=== PATIENT | male | born 1935 | race Caucasian/White ===

== ENCOUNTER 2019-06-10 08:58 | Emergency (ER) | payer MEDICARE, OTHER ==
[2019-06-10] MEDS ORDERED: Sodium Chloride 0.9% 10 ML Syringe FLUSH PRN (09:02)
--- NOTE | 2019-06-10 09:23 | EDM.PDOC ---
ED HPI GENERAL MEDICAL PROBLEM - General Stated Complaint: STROKE CODE Time Seen by Provider: 06/10/19 09:00 Source of Information: Reports: Patient, Family History Limitations: Reports: No Limitations - History of Present Illness INITIAL COMMENTS - FREE TEXT/NARRATIVE: Pt. presents to ER with complaints of headache and expressive aphasia. According to pt. daughter, the symptoms started yesterday at around 4 PM. At that time, the headache was more severe, and the expressive aphasia is more pronounced. On arrival today, pt. reports that his headache is only a 1-2. He has a history of migraine headache in the past and he feels as though this could be a migraine. He states that he has never had issues with expressive aphasia or dysarthria or other neuro symptoms in the past with migraines. Pt. denies any nausea or vomiting. He states that he did have some visual flashing type aura yesterday at the onset of the symptoms but he states that this resolved in 10-15 min. Onset Date: 06/09/19 Onset Time: 16:00 Associated Symptoms: Reports: Headaches, Other (see HPI). Denies: Confusion, Chest Pain, Cough, Fever/Chills, Loss of Appetite, Malaise, Nausea/Vomiting, Rash, Seizure, Shortness of Breath, Weakness - Related Data Allergies Allergy/AdvReac Type Severity Reaction Status Date / Time adhesive Allergy Redness Verified 12/20/17 07:27 cephalexin [From Keflex] Allergy Rash Verified 12/20/17 07:27 Penicillins Allergy Rash Verified 12/20/17 07:27 Home Meds: Home Meds Aspirin 81 mg PO DAILY 12/11/17 [History] Cyanocobalamin (Vitamin B-12) [B-12] 1,000 mcg PO DAILY 12/11/17 [History] Desoximetasone [Desoximetasone 0.25%] 1 applic TOP BID 12/11/17 [History] Doxazosin [Doxazosin Mesylate] 4 mg PO DAILY 12/11/17 [History] Metoprolol Succinate [Toprol XL] 25 mg PO DAILY 12/11/17 [History] Omeprazole Magnesium [Prilosec Otc] 20 mg PO DAILY 12/11/17 [History] Pravastatin Sodium [Pravachol] 20 mg PO DAILY 12/11/17 [History] Pregabalin [Lyrica] 50 mg PO DAILY 12/11/17 [History] Past Medical History HEENT History: Reports: Cataract Cardiovascular History: Reports: High Cholesterol, Hypertension Other Cardiovascular History: orthostatic hypotension Respiratory History: Reports: None Other Respiratory History: SURGERY FOR RADIACAL PROSTECTOMY Gastrointestinal History: Reports: GERD Genitourinary History: Reports: None Musculoskeletal History: Reports: Arthritis Neurological History: Reports: None Other Neuro History: neuropathy. Anosmia Endocrine/Metabolic History: Reports: Obesity/BMI 30+ Hematologic History: Reports: None Immunologic History: Reports: None Oncologic (Cancer) History: Reports: Prostate Dermatologic History: Reports: None - Past Surgical History HEENT Surgical History: Reports: Cataract Surgery Cardiovascular Surgical History: Reports: None GI Surgical History: Reports: Hernia, Inguinal, Hernia Repair/Other Male Surgical History: Reports: Prostatectomy Endocrine Surgical History: Reports: None Neurological Surgical History: Reports: None Musculoskeletal Surgical History: Reports: None ED ROS GENERAL - Review of Systems Review Of Systems: See Below Constitutional: Reports: No Symptoms HEENT: Reports: No Symptoms Respiratory: Reports: No Symptoms Cardiovascular: Reports: No Symptoms Endocrine: Reports: No Symptoms GI/Abdominal: Reports: No Symptoms : Reports: No Symptoms Musculoskeletal: Reports: No Symptoms Skin: Reports: No Symptoms Neurological: Reports: Other (See HPI) Psychiatric: Reports: No Symptoms Hematologic/Lymphatic: Reports: No Symptoms Immunologic: Reports: No Symptoms ED EXAM, GENERAL - Physical Exam Exam: See Below Exam Limited By: No Limitations General Appearance: Alert, WD/WN, No Apparent Distress Eye Exam: Bilateral Eye: EOMI, Normal Fundi, Normal Inspection, PERRL Head: Atraumatic, Normocephalic Neck: Normal Inspection, Supple, Non-Tender, Full Range of Motion Respiratory/Chest: No Respiratory Distress, Lungs Clear, Normal Breath Sounds, No Accessory Muscle Use, Chest Non-Tender Cardiovascular: Normal Peripheral Pulses, Regular Rate, Rhythm, No Edema, No Gallop, No JVD, No Murmur, No Rub GI/Abdominal: Normal Bowel Sounds, Soft, Non-Tender, No Organomegaly, No Distention, No Abnormal Bruit, No Mass, Pelvis Stable (Male) Exam: Deferred Rectal (Males) Exam: Deferred Back Exam: Normal Inspection, Full Range of Motion Extremities: Normal Inspection, Normal Range of Motion, Non-Tender, No Pedal Edema, Normal Capillary Refill Neurological: Alert, Oriented, CN II-XII Intact, Normal Cognition, Normal Gait, Normal Reflexes, No Motor/Sensory Deficits, Other (mild expressive aphasia, had trouble identifying several pictures on the [employer] identification form. Reading and speech are slower than normal, according to daughter.) Psychiatric: Normal Affect, Normal Mood Skin Exam: Warm, Dry, Intact, Normal Color, No Rash Lymphatic: No Adenopathy EKG INTERPRETATION Rhythm: NSR Gaffney: Normal P-Wave: Present QRS: Normal ST-T: Normal QT: Normal Course - Orders/Labs/Meds Orders: Active Orders 24 hr Category Date Time Status Blood Glucose Check, Bedside [RC] ONETIME Care 06/10/19 09:04 Active EKG Documentation Completion [RC] STAT Care 06/10/19 09:02 Active Head wo Cont [CT] Stat Exams 06/10/19 09:01 Taken CBC WITH AUTO DIFF [HEME] Stat Lab 06/10/19 09:02 Ordered COMPREHENSIVE METABOLIC PN,CMP [CHEM] Stat Lab 06/10/19 09:02 Ordered CRP [C-REACTIVE PROTEIN] [CHEM] Stat Lab 06/10/19 09:02 Ordered GLUCOSE,POC [POC] Routine Lab 06/10/19 09:13 Received INR,PT,PROTHROMBIN TIME [COAG] Stat Lab 06/10/19 09:02 Ordered MAGNESIUM [CHEM] Stat Lab 06/10/19 09:02 Ordered TROPONIN I [CHEM] Stat Lab 06/10/19 09:02 Ordered TSH ULTRASENSITIVE [CHEM] Stat Lab 06/10/19 09:02 Ordered Sodium Chloride 0.9% [Saline Flush] Med 06/10/19 09:02 Active 10 ml FLUSH ASDIRECTED PRN Peripheral IV Insertion Adult [OM.PC] Routine Oth 06/10/19 09:03 Ordered Medication Orders Sodium Chloride (Saline Flush) 10 ml FLUSH ASDIRECTED PRN PRN Reason: Keep Vein Open Meds: Medications Generic Name Dose Route Start Last Admin Trade Name Freq PRN Reason Stop Dose Admin Sodium Chloride 10 ml 06/10/19 09:02 Saline Flush FLUSH ASDIRECTED PRN Keep Vein Open - Radiology Interpretation Free Text/Narrative:: CT brain negative for acute pathology. Departure - Departure Time of Disposition: 09:47 Disposition: DC/Tfer to Acute Hospital 02 Clinical Impression: Expressive aphasia - Discharge Information - My Orders Last 24 Hours: My Active Orders 06/10/19 09:01 Head wo Cont [CT] Stat 06/10/19 09:02 EKG Documentation Completion [RC] STAT CBC WITH AUTO DIFF [HEME] Stat COMPREHENSIVE METABOLIC PN,CMP [CHEM] Stat CRP [C-REACTIVE PROTEIN] [CHEM] Stat INR,PT,PROTHROMBIN TIME [COAG] Stat MAGNESIUM [CHEM] Stat TROPONIN I [CHEM] Stat TSH ULTRASENSITIVE [CHEM] Stat Sodium Chloride 0.9% [Saline Flush] 10 ml FLUSH ASDIRECTED PRN 06/10/19 09:03 Peripheral IV Insertion Adult [OM.PC] Routine 06/10/19 09:04 Blood Glucose Check, Bedside [RC] ONETIME 06/10/19 09:13 GLUCOSE,POC [POC] Routine - Assessment/Plan Last 24 Hours: My Active Orders 06/10/19 09:01 Head wo Cont [CT] Stat 06/10/19 09:02 EKG Documentation Completion [RC] STAT CBC WITH AUTO DIFF [HEME] Stat COMPREHENSIVE METABOLIC PN,CMP [CHEM] Stat CRP [C-REACTIVE PROTEIN] [CHEM] Stat INR,PT,PROTHROMBIN TIME [COAG] Stat MAGNESIUM [CHEM] Stat TROPONIN I [CHEM] Stat TSH ULTRASENSITIVE [CHEM] Stat Sodium Chloride 0.9% [Saline Flush] 10 ml FLUSH ASDIRECTED PRN 06/10/19 09:03 Peripheral IV Insertion Adult [OM.PC] Routine 06/10/19 09:04 Blood Glucose Check, Bedside [RC] ONETIME 06/10/19 09:13 GLUCOSE,POC [POC] Routine Plan: Spoke with Dr. Ferrer, neurologist at [facility]. He advised transfer to their stroke center for CTA, MRA, echo, and other workup as needed. He will be seen in ER. He will be transferred via [facility] ground ambulance. CT brain negative for acute pathology. He was given aspirin 324mg PO. All questions were answered.
--- NOTE | 2019-06-10 09:28 | CT ---
[id number] CT/CT Head Stroke Protocol Exam: CT Head Stroke Protocol Clinical Data: EXPRESSIVE APHASIA COMPARISON: NO PREVIOUS SIMILAR EXAM IS AVAILABLE FINDINGS: There is no mass or mass effect There is no hemorrhage or hydrocephalus There are no extra-axial fluid collections There is no hyperdense middle cerebral artery sign There are no sites of abnormal attenuation The aspect score is 10 Report was called at time of the dictation IMPRESSION: NEGATIVE PLAIN CT BRAIN Zeyad Conti MD 06/10/19 0925 Thank you for allowing us to participate in the care of your patient.
[2019-06-10] MEDS ORDERED: Aspirin 81 MG Tab.Chew PO ONE (09:33)
[2019-06-10 09:58] LABS: CHLORIDE,CL 105 mmol/L (98-107); SODIUM,NA 142 mmol/L (136-145)
== END 2019-06-10 10:05 | disposition short-term general hospital (02) ==
LOC: VM.ED 08:58
DX: R47.01 Aphasia (principal); I10 Essential (primary) hypertension; Z91.048 Other nonmedicinal substance allergy status; Z88.1 Allergy status to other antibiotic agents; Z88.0 Allergy status to penicillin; Z79.82 Long term (current) use of aspirin; Z79.899 Other long term (current) drug therapy
CPT/HCPCS: 70450; 80053; 82962; 83735; 84443; 84484; 85025; 85610; 86140; 93005; 93010; 99284; 99285; A9270

== ENCOUNTER 2021-10-05 09:15 | Inpatient (IN) | payer MEDICARE ==
[2021-10-05] MEDS ORDERED: Sodium Chloride 0.9% 1,000 ML IV ONE (09:30)
[2021-10-05] MEDS ORDERED: Acetaminophen 325 MG Tab PO ONE (09:31)
[2021-10-05 10:08] LABS: CHLORIDE,CL 103 mmol/L (98-107); SODIUM,NA 139 mmol/L (136-145)
[2021-10-05 10:10] LABS: ANION GAP 15.4 mmol/L (5-15); ESTIMATED GFR 60 mL/min (>=60)
[2021-10-05] MEDS ORDERED: Aspirin 81 MG Tab.Chew PO ONE (10:15)
[2021-10-05] MEDS ORDERED: Metoprolol Succinate 25 MG Tab.ER PO SCH (12:30)
[2021-10-05] MEDS ORDERED: Ondansetron 4 MG Tab.DIS PO PRN (13:05)
[2021-10-05] MEDS ORDERED: Acetaminophen 325 MG Tab PO PRN (13:10)
[2021-10-05] MEDS: Aspirin 81 MG Tab.Chew PO SCH (13:16)
[2021-10-05] MEDS: Cyanocobalamin (Vitamin B12) 1,000 MCG Tab PO SCH (13:20)
[2021-10-05] MEDS: Pregabalin 50 MG Cap PO SCH (13:20)
[2021-10-05] MEDS: Pravastatin 20 MG Tab PO SCH (13:20)
[2021-10-05] MEDS: Carbidopa/Levodopa 25-100 MG Tab PO SCH ×2 (13:24→21:13)
[2021-10-05] MEDS ORDERED: Metoprolol Succinate 25 MG Tab.ER PO ONE (15:00)
[2021-10-05] MEDS: Carbidopa/Levodopa 50-200 MG Tab.ER PO SCH (21:15)
[2021-10-05] MEDS: Enoxaparin 30 MG/0.3 ML Syringe SUBCUT SCH (21:15)
[2021-10-06] MEDS: Pantoprazole 20 MG Tab, Delayed Release PO SCH (06:09)
[2021-10-06 08:41] LABS: ANION GAP 15.6 mmol/L (5-15)
[2021-10-06] MEDS: Pravastatin 20 MG Tab PO SCH (09:32)
[2021-10-06] MEDS: Doxazosin 4 MG Tab PO SCH (09:41)
[2021-10-06] MEDS: Metoprolol Succinate 50 MG Tab.ER PO SCH (09:42)
[2021-10-06] MEDS: Carbidopa/Levodopa 25-100 MG Tab PO SCH ×3 (09:43→20:19)
[2021-10-06] MEDS: Aspirin 81 MG Tab.Chew PO SCH (09:44)
[2021-10-06] MEDS: Pregabalin 50 MG Cap PO SCH (09:44)
[2021-10-06] MEDS: Cyanocobalamin (Vitamin B12) 1,000 MCG Tab PO SCH (09:44)
[2021-10-06] MEDS: Enoxaparin 30 MG/0.3 ML Syringe SUBCUT SCH (20:19)
[2021-10-06] MEDS: Carbidopa/Levodopa 50-200 MG Tab.ER PO SCH (20:19)
[2021-10-07] MEDS: Pantoprazole 20 MG Tab, Delayed Release PO SCH (06:08)
[2021-10-07 07:21] LABS: ANION GAP 12.7 mmol/L (5-15)
[2021-10-07] MEDS: Doxazosin 4 MG Tab PO SCH (08:33)
[2021-10-07] MEDS: Cyanocobalamin (Vitamin B12) 1,000 MCG Tab PO SCH (08:33)
[2021-10-07] MEDS: Pregabalin 50 MG Cap PO SCH (08:33)
[2021-10-07] MEDS: Aspirin 81 MG Tab.Chew PO SCH (08:33)
[2021-10-07] MEDS: Carbidopa/Levodopa 25-100 MG Tab PO SCH ×3 (08:34→20:21)
[2021-10-07] MEDS: Metoprolol Succinate 50 MG Tab.ER PO SCH (08:34)
[2021-10-07] MEDS ORDERED: Benzonatate 100 MG Cap PO PRN (11:08)
[2021-10-07] MEDS: Enoxaparin 40 MG/0.4 ML Syringe SUBCUT SCH (20:21)
[2021-10-07] MEDS: Carbidopa/Levodopa 50-200 MG Tab.ER PO SCH (20:22)
[2021-10-08] MEDS: Pantoprazole 20 MG Tab, Delayed Release PO SCH (07:32)
[2021-10-08 08:27] LABS: ANION GAP 12.7 mmol/L (5-15)
[2021-10-08] MEDS: Metoprolol Succinate 50 MG Tab.ER PO SCH (08:52)
[2021-10-08] MEDS: Doxazosin 4 MG Tab PO SCH (08:52)
[2021-10-08] MEDS: Aspirin 81 MG Tab.Chew PO SCH (08:52)
[2021-10-08] MEDS: Cyanocobalamin (Vitamin B12) 1,000 MCG Tab PO SCH (08:52)
[2021-10-08] MEDS: Carbidopa/Levodopa 25-100 MG Tab PO SCH ×3 (08:52→21:12)
[2021-10-08] MEDS: Pregabalin 50 MG Cap PO SCH (08:53)
[2021-10-08] MEDS: Carbidopa/Levodopa 50-200 MG Tab.ER PO SCH (21:13)
[2021-10-08] MEDS: Enoxaparin 40 MG/0.4 ML Syringe SUBCUT SCH (21:14)
[2021-10-09] MEDS: Carbidopa/Levodopa 25-100 MG Tab PO SCH ×2 (07:00→13:38)
[2021-10-09] MEDS: Pantoprazole 20 MG Tab, Delayed Release PO SCH (07:05)
[2021-10-09] MEDS: Aspirin 81 MG Tab.Chew PO SCH (08:40)
[2021-10-09] MEDS: Pregabalin 50 MG Cap PO SCH (08:40)
[2021-10-09] MEDS: Doxazosin 4 MG Tab PO SCH (08:40)
[2021-10-09] MEDS: Metoprolol Succinate 50 MG Tab.ER PO SCH (08:41)
[2021-10-09] MEDS: Cyanocobalamin (Vitamin B12) 1,000 MCG Tab PO SCH (08:41)
[2021-10-09] MEDS ORDERED: Ascorbic Acid 500 MG Tab PO SCH (09:00)
[2021-10-09] MEDS ORDERED: Cholecalciferol (Vitamin D3) 25 MCG Tab PO SCH (09:00)
[2021-10-09] MEDS ORDERED: Zinc Sulfate 220 MG Cap PO SCH (09:00)
[2021-10-09] MEDS ORDERED: Cholecalciferol (Vitamin D3) 10 MCG Tab PO SCH (09:00)
== END 2021-10-09 14:14 | disposition home health service (06) | DRG 177 ==
LOC: VM.ED 09:15 → VM.MS 11:12 → UNDODISIN 10-09 14:14
PROVIDERS: ADMIT Nurse Practitioner Family; ATTEND Nurse Practitioner Family
PROC: 8E0ZXY6 Isolation (ICD-10-PCS; principal; 2021-10-05)
DX: U07.1 COVID-19 (principal); R53.1 Weakness; R50.9 Fever, unspecified; R77.8 Other specified abnormalities of plasma proteins; Z28.311 Partially vaccinated for COVID-19; I21.4 Non-ST elevation (NSTEMI) myocardial infarction; M62.82 Rhabdomyolysis; E44.1 Mild protein-calorie malnutrition; I10 Essential (primary) hypertension; Z85.46 Personal history of malignant neoplasm of prostate; E78.5 Hyperlipidemia, unspecified; G20 Parkinson's disease; K21.9 Gastro-esophageal reflux disease without esophagitis; F41.9 Anxiety disorder, unspecified; G62.9 Polyneuropathy, unspecified; E78.00 Pure hypercholesterolemia, unspecified; R73.01 Impaired fasting glucose; M19.90 Unspecified osteoarthritis, unspecified site; Z66 Do not resuscitate; Z88.0 Allergy status to penicillin; Z79.82 Long term (current) use of aspirin; Z79.899 Other long term (current) drug therapy; Z88.1 Allergy status to other antibiotic agents; Z88.8 Allergy status to other drugs, medicaments and biological substances; Z68.33 Body mass index [BMI] 33.0-33.9, adult
CPT/HCPCS: 36415; 71045; 80053; 81001; 82550; 83605; 83735; 83880; 84484; 85025; 85027; 96360; 97110-GP; 97116-GP; 97163-GP; 99284; 99285-25; A9270-GY; J1650; J7030; U0002

== ENCOUNTER 2023-05-10 09:06 | Inpatient (IN) | payer MEDICARE ==
[2023-05-10] MEDS ORDERED: Furosemide 40 MG/4 ML VIAL IV ONE (09:10)
[2023-05-10 09:22] LABS: BASOPHILS PERCENT AUTO 0.2 % (0.2-1.2); EOSINOPHILS PERCENT AUTO 0.2 % (0.0-4.0); HEMATOCRIT 38.8 % (40.0-52.0); HEMOGLOBIN 13.1 g/dL (14.0-18.0); IMMATURE GRAN ABSOLUTE AUTO 0.01 x10^3/uL (0.00-0.07); LYMPHOCYTES ABSOLUTE AUTO 0.3 x10^3/uL (1.0-4.8); LYMPHOCYTES PERCENT AUTO 3.5 % (25.0-50.0); MEAN CORPUSCULAR HEMOGLOBIN 29.6 pg (26.0-32.0); MEAN CORPUSCULAR HGB CONC 33.8 g/dL (32.0-36.0); MEAN CORPUSCULAR VOLUME 87.8 fL (78.0-93.0); MONOCYTES ABSOLUTE AUTO 0.7 x10^3/uL (0.0-0.8); MONOCYTES PERCENT AUTO 8.8 % (2.0-11.0); NEUTROPHILS ABSOLUTE AUTO 7.3 x10^3/uL (1.8-7.7); NEUTROPHILS PERCENT AUTO 87.2 % (50.0-80.0); RED BLOOD CELL COUNT 4.42 x10^6/uL (4.5-6.0); WHITE BLOOD CELL COUNT,WBC 8.3 x10^3/uL (4.0-10.0)
[2023-05-10 09:43] LABS: PLATELET COUNT,PLT 140 x10^3/uL (130-400)
[2023-05-10 09:48] LABS: A/G RATIO 1.23; ALBUMIN 3.7 g/dL (3.4-5.0); ALKALINE PHOSPHATASE 83 U/L (46-116); ASPARTATE AMNIOTRANSFERASE,AST 31 U/L (15-37); BILIRUBIN TOTAL 1.9 mg/dL (0.2-1.0); BLOOD UREA NITROGEN,BUN 17 mg/dL (7-18); CALCIUM 9.6 mg/dL (8.5-10.1); CARBON DIOXIDE,CO2 28 mmol/L (21-32); CHLORIDE,CL 103 mmol/L (98-107); CREATININE 1.2 mg/dL (0.70-1.30); GLUCOSE RANDOM 108 mg/dL (70-99); POTASSIUM,K 3.7 mmol/L (3.5-5.1); PROTEIN TOTAL,TP 6.7 g/dL (6.4-8.2); SODIUM,NA 140 mmol/L (136-145)
[2023-05-10 09:51] LABS: ANION GAP 12.7 mmol/L (5-15); ESTIMATED GFR 59 mL/min (>=60)
[2023-05-10 10:16] LABS: ALANINE AMINOTRANSFERASE,ALT 28 U/L (16-63)
[2023-05-10 10:34] LABS: C-REACTIVE PROTEIN 1.75 mg/dL (<=0.50)
[2023-05-10 11:13] LABS: CORONAVIRUS COVID-19 NAA NEGATIVE (NEGATIVE)
[2023-05-10 11:14] LABS: INFLUENZA A NAA NEGATIVE (NEGATIVE); INFLUENZA B NAA NEGATIVE (NEGATIVE)
[2023-05-10] MEDS ORDERED: Carbidopa/Levodopa 50-200 MG Tab.ER PO PRN (11:42)
[2023-05-10] MEDS ORDERED: Sodium Chloride 0.9% 1,000 ML IV SCH (11:45)
[2023-05-10 12:21] LABS: APPEARANCE,URINE TURBID (CLEAR); BILIRUBIN,URINE NEGATIVE (NEGATIVE); GLUCOSE,URINE NEGATIVE (NEGATIVE); KETONES,URINE NEGATIVE (NEGATIVE); LEUKOCYTE ESTERASE,URINE TRACE (NEGATIVE); NITRITE,URINE NEGATIVE (NEGATIVE); OCCULT BLOOD,URINE LARGE (NEGATIVE); PROTEIN,URINE NEGATIVE (NEGATIVE); UROBILINOGEN,URINE 0.2 EU/dL (0.2)
[2023-05-10 12:22] LABS: COLOR,URINE RED (YELLOW)
[2023-05-10 12:27] LABS: BACTERIA,URINE OCCASIONAL /HPF (NOT SEEN); MUCUS,URINE OCCASIONAL /LPF (NOT SEEN); RBC,URINE >100 /HPF (NOT SEEN); SQUAMOUS EPITHELIAL CELLS,UR NOT SEEN /HPF (NOT SEEN)
[2023-05-10] MEDS ORDERED: Bisacodyl 10 MG Supp RECTAL PRN (12:34)
[2023-05-10] MEDS: Cyanocobalamin (Vitamin B12) 1,000 MCG Tab PO SCH (12:52)
[2023-05-10] MEDS: Docusate Sodium 100 MG Cap PO SCH (12:52)
[2023-05-10] MEDS: Cholecalciferol (Vitamin D3) 25 MCG Tab PO SCH (12:53)
[2023-05-10] MEDS: Pantoprazole 40 MG Tab.CR PO SCH (12:53)
[2023-05-10] MEDS: FLUoxetine 10 MG Cap PO SCH (12:53)
[2023-05-10] MEDS: Carbidopa/Levodopa 25-100 MG Tab PO SCH ×2 (12:53→15:50)
[2023-05-10] MEDS: Aspirin 81 MG Tab.Chew PO SCH (12:54)
[2023-05-10] MEDS: Metoprolol Succinate 50 MG Tab.ER PO SCH (12:58)
[2023-05-10] MEDS: Lisinopril 5 MG Tab PO SCH (15:47)
[2023-05-10] MEDS: Enoxaparin 40 MG/0.4 ML Syringe SUBCUT SCH (20:06)
[2023-05-10] MEDS: Carbidopa/Levodopa 50-200 MG Tab.ER PO SCH (20:06)
[2023-05-10] MEDS: Donepezil 10 MG Tab PO SCH (20:07)
[2023-05-10] MEDS: Baclofen 10 MG Tab PO SCH (20:07)
[2023-05-11] MEDS: Carbidopa/Levodopa 25-100 MG Tab PO SCH ×3 (05:18→15:49)
[2023-05-11 07:01] LABS: BASOPHILS PERCENT AUTO 0.2 % (0.2-1.2); EOSINOPHILS ABSOLUTE AUTO 0.1 x10^3/uL (0.0-0.5); EOSINOPHILS PERCENT AUTO 2.1 % (0.0-4.0); HEMATOCRIT 37.5 % (40.0-52.0); HEMOGLOBIN 12.5 g/dL (14.0-18.0); IMMATURE GRAN ABSOLUTE AUTO 0.01 x10^3/uL (0.00-0.07); LYMPHOCYTES ABSOLUTE AUTO 0.3 x10^3/uL (1.0-4.8); LYMPHOCYTES PERCENT AUTO 5.6 % (25.0-50.0); MEAN CORPUSCULAR HEMOGLOBIN 29.5 pg (26.0-32.0); MEAN CORPUSCULAR HGB CONC 33.3 g/dL (32.0-36.0); MEAN CORPUSCULAR VOLUME 88.4 fL (78.0-93.0); MONOCYTES ABSOLUTE AUTO 0.6 x10^3/uL (0.0-0.8); MONOCYTES PERCENT AUTO 10.9 % (2.0-11.0); NEUTROPHILS ABSOLUTE AUTO 4.7 x10^3/uL (1.8-7.7); RED BLOOD CELL COUNT 4.24 x10^6/uL (4.5-6.0); WHITE BLOOD CELL COUNT,WBC 5.9 x10^3/uL (4.0-10.0)
[2023-05-11 07:20] LABS: PLATELET COUNT,PLT 118 x10^3/uL (130-400)
[2023-05-11 07:32] LABS: A/G RATIO 1.1; ALBUMIN 3.2 g/dL (3.4-5.0); BILIRUBIN TOTAL 1.3 mg/dL (0.2-1.0); CALCIUM 9.3 mg/dL (8.5-10.1); EST CRCL DRUG DOSING (CG) 53.03 mL/min; POTASSIUM,K 3.2 mmol/L (3.5-5.1); PROTEIN TOTAL,TP 6.1 g/dL (6.4-8.2)
[2023-05-11 07:34] LABS: ANION GAP 12.2 mmol/L (5-15)
[2023-05-11] MEDS: Aspirin 81 MG Tab.Chew PO SCH (08:44)
[2023-05-11] MEDS: Lisinopril 5 MG Tab PO SCH (08:45)
[2023-05-11] MEDS: Cholecalciferol (Vitamin D3) 25 MCG Tab PO SCH (08:45)
[2023-05-11] MEDS: Docusate Sodium 100 MG Cap PO SCH (08:45)
[2023-05-11] MEDS: Metoprolol Succinate 50 MG Tab.ER PO SCH (08:45)
[2023-05-11] MEDS: Cyanocobalamin (Vitamin B12) 1,000 MCG Tab PO SCH (08:46)
[2023-05-11] MEDS: FLUoxetine 10 MG Cap PO SCH (08:46)
[2023-05-11] MEDS: Pantoprazole 40 MG Tab.CR PO SCH (08:46)
[2023-05-11] MEDS ORDERED: Sodium Chloride 0.9% 1,000 ML IV SCH (10:00)
[2023-05-11] MEDS: Potassium Chloride 20 MEQ Tab.ER PO SCH ×2 (10:45→20:51)
[2023-05-11] MEDS ORDERED: LORazepam 0.5 MG Tab PO PRN (13:02)
[2023-05-11] MEDS: Enoxaparin 40 MG/0.4 ML Syringe SUBCUT SCH (20:50)
[2023-05-11] MEDS: Donepezil 10 MG Tab PO SCH (20:51)
[2023-05-11] MEDS: Carbidopa/Levodopa 50-200 MG Tab.ER PO SCH (20:51)
[2023-05-11] MEDS: Baclofen 10 MG Tab PO SCH (20:51)
[2023-05-12] MEDS: Carbidopa/Levodopa 25-100 MG Tab PO SCH ×3 (06:12→15:43)
[2023-05-12 08:09] LABS: BASOPHILS PERCENT AUTO 0.3 % (0.2-1.2); EOSINOPHILS ABSOLUTE AUTO 0.1 x10^3/uL (0.0-0.5); EOSINOPHILS PERCENT AUTO 1.2 % (0.0-4.0); HEMATOCRIT 38.4 % (40.0-52.0); HEMOGLOBIN 12.7 g/dL (14.0-18.0); IMMATURE GRAN ABSOLUTE AUTO 0.01 x10^3/uL (0.00-0.07); LYMPHOCYTES ABSOLUTE AUTO 0.3 x10^3/uL (1.0-4.8); LYMPHOCYTES PERCENT AUTO 4.7 % (25.0-50.0); MEAN CORPUSCULAR HEMOGLOBIN 29.7 pg (26.0-32.0); MEAN CORPUSCULAR HGB CONC 33.1 g/dL (32.0-36.0); MEAN CORPUSCULAR VOLUME 89.7 fL (78.0-93.0); MONOCYTES ABSOLUTE AUTO 0.6 x10^3/uL (0.0-0.8); MONOCYTES PERCENT AUTO 9.3 % (2.0-11.0); NEUTROPHILS ABSOLUTE AUTO 5.5 x10^3/uL (1.8-7.7); NEUTROPHILS PERCENT AUTO 84.3 % (50.0-80.0); PLATELET COUNT,PLT 115 x10^3/uL (130-400); RED BLOOD CELL COUNT 4.28 x10^6/uL (4.5-6.0); WHITE BLOOD CELL COUNT,WBC 6.6 x10^3/uL (4.0-10.0)
[2023-05-12] MEDS: Lisinopril 5 MG Tab PO SCH (08:22)
[2023-05-12] MEDS: Cyanocobalamin (Vitamin B12) 1,000 MCG Tab PO SCH (08:23)
[2023-05-12] MEDS: Metoprolol Succinate 50 MG Tab.ER PO SCH (08:23)
[2023-05-12] MEDS: FLUoxetine 10 MG Cap PO SCH (08:23)
[2023-05-12] MEDS: Docusate Sodium 100 MG Cap PO SCH (08:23)
[2023-05-12] MEDS: Cholecalciferol (Vitamin D3) 25 MCG Tab PO SCH (08:23)
[2023-05-12] MEDS: Aspirin 81 MG Tab.Chew PO SCH (08:24)
[2023-05-12] MEDS: Pantoprazole 40 MG Tab.CR PO SCH (08:24)
[2023-05-12] MEDS: Potassium Chloride 20 MEQ Tab.ER PO SCH ×2 (08:24→20:17)
[2023-05-12 08:32] LABS: A/G RATIO 0.97; ALBUMIN 3.2 g/dL (3.4-5.0); ANION GAP 13.6 mmol/L (5-15); BILIRUBIN TOTAL 1.6 mg/dL (0.2-1.0); CREATININE 0.9 mg/dL (0.70-1.30); EST CRCL DRUG DOSING (CG) 58.92 mL/min; POTASSIUM,K 3.6 mmol/L (3.5-5.1); PROTEIN TOTAL,TP 6.5 g/dL (6.4-8.2)
[2023-05-12] MEDS: Acetaminophen 325 MG Tab PO PRN (10:38)
[2023-05-12] MEDS ORDERED: Lisinopril 10 MG Tab PO ONE (12:43)
[2023-05-12] MEDS: Donepezil 10 MG Tab PO SCH (20:17)
[2023-05-12] MEDS: Baclofen 10 MG Tab PO SCH (20:17)
[2023-05-12] MEDS: Enoxaparin 40 MG/0.4 ML Syringe SUBCUT SCH (20:17)
[2023-05-12] MEDS: Carbidopa/Levodopa 50-200 MG Tab.ER PO SCH (20:17)
[2023-05-13] MEDS: Acetaminophen 325 MG Tab PO PRN (05:52)
[2023-05-13] MEDS: Carbidopa/Levodopa 25-100 MG Tab PO SCH ×3 (05:53→16:24)
[2023-05-13 07:35] LABS: BASOPHILS PERCENT AUTO 0.3 % (0.2-1.2); EOSINOPHILS ABSOLUTE AUTO 0.1 x10^3/uL (0.0-0.5); HEMATOCRIT 33.4 % (40.0-52.0); HEMOGLOBIN 11.2 g/dL (14.0-18.0); IMMATURE GRAN ABSOLUTE AUTO 0.02 x10^3/uL (0.00-0.07); LYMPHOCYTES ABSOLUTE AUTO 0.2 x10^3/uL (1.0-4.8); LYMPHOCYTES PERCENT AUTO 3.9 % (25.0-50.0); MEAN CORPUSCULAR HEMOGLOBIN 29.9 pg (26.0-32.0); MEAN CORPUSCULAR HGB CONC 33.5 g/dL (32.0-36.0); MEAN CORPUSCULAR VOLUME 89.1 fL (78.0-93.0); MONOCYTES ABSOLUTE AUTO 0.6 x10^3/uL (0.0-0.8); MONOCYTES PERCENT AUTO 10.1 % (2.0-11.0); NEUTROPHILS ABSOLUTE AUTO 5.2 x10^3/uL (1.8-7.7); NEUTROPHILS PERCENT AUTO 84.4 % (50.0-80.0); RED BLOOD CELL COUNT 3.75 x10^6/uL (4.5-6.0); WHITE BLOOD CELL COUNT,WBC 6.1 x10^3/uL (4.0-10.0)
[2023-05-13 07:52] LABS: A/G RATIO 0.87; ALBUMIN 2.6 g/dL (3.4-5.0); BILIRUBIN TOTAL 1.2 mg/dL (0.2-1.0); CALCIUM 8.8 mg/dL (8.5-10.1); CREATININE 0.9 mg/dL (0.70-1.30); EST CRCL DRUG DOSING (CG) 58.92 mL/min; POTASSIUM,K 3.5 mmol/L (3.5-5.1); PROTEIN TOTAL,TP 5.6 g/dL (6.4-8.2)
[2023-05-13 07:53] LABS: ANION GAP 11.5 mmol/L (5-15)
[2023-05-13 07:56] LABS: PLATELET COUNT,PLT 103 x10^3/uL (130-400)
[2023-05-13] MEDS: Metoprolol Succinate 50 MG Tab.ER PO SCH (09:30)
[2023-05-13] MEDS: Docusate Sodium 100 MG Cap PO SCH (09:31)
[2023-05-13] MEDS: Cyanocobalamin (Vitamin B12) 1,000 MCG Tab PO SCH (09:32)
[2023-05-13] MEDS: Aspirin 81 MG Tab.Chew PO SCH (09:32)
[2023-05-13] MEDS: Potassium Chloride 20 MEQ Tab.ER PO SCH ×2 (09:32→20:38)
[2023-05-13] MEDS: Pantoprazole 40 MG Tab.CR PO SCH (09:32)
[2023-05-13] MEDS: Cholecalciferol (Vitamin D3) 25 MCG Tab PO SCH (09:32)
[2023-05-13] MEDS: FLUoxetine 10 MG Cap PO SCH (09:32)
[2023-05-13] MEDS: Lisinopril 5 MG Tab PO SCH (09:32)
[2023-05-13 16:51] LABS: APPEARANCE,URINE TURBID (CLEAR); BILIRUBIN,URINE SMALL (NEGATIVE); COLOR,URINE DARK YELLOW (YELLOW); GLUCOSE,URINE 100 mg/dL (NEGATIVE); KETONES,URINE 15 mg/dL (NEGATIVE); LEUKOCYTE ESTERASE,URINE NEGATIVE (NEGATIVE); NITRITE,URINE POSITIVE (NEGATIVE); OCCULT BLOOD,URINE SMALL (NEGATIVE); PROTEIN,URINE 30 mg/dL (NEGATIVE)
[2023-05-13 17:14] LABS: AMORPHOUS SEDIMENT,URINE MANY; BACTERIA,URINE FEW /HPF (NOT SEEN); MUCUS,URINE OCCASIONAL /LPF (NOT SEEN); WBC,URINE 0-5 /HPF (NOT SEEN)
[2023-05-13] MEDS: Baclofen 10 MG Tab PO SCH (20:38)
[2023-05-13] MEDS: Ciprofloxacin 250 MG Tab PO SCH (20:38)
[2023-05-13] MEDS: Carbidopa/Levodopa 50-200 MG Tab.ER PO SCH (20:38)
[2023-05-13] MEDS: Donepezil 10 MG Tab PO SCH (20:38)
[2023-05-13] MEDS: Enoxaparin 40 MG/0.4 ML Syringe SUBCUT SCH (20:38)
[2023-05-14] MEDS: Carbidopa/Levodopa 25-100 MG Tab PO SCH ×2 (05:48→11:30)
[2023-05-14 06:48] LABS: BASOPHILS PERCENT AUTO 0.3 % (0.2-1.2); EOSINOPHILS ABSOLUTE AUTO 0.2 x10^3/uL (0.0-0.5); EOSINOPHILS PERCENT AUTO 3.3 % (0.0-4.0); HEMATOCRIT 34.8 % (40.0-52.0); HEMOGLOBIN 11.5 g/dL (14.0-18.0); IMMATURE GRAN ABSOLUTE AUTO 0.01 x10^3/uL (0.00-0.07); LYMPHOCYTES ABSOLUTE AUTO 0.3 x10^3/uL (1.0-4.8); MEAN CORPUSCULAR HEMOGLOBIN 29.6 pg (26.0-32.0); MEAN CORPUSCULAR VOLUME 89.7 fL (78.0-93.0); MONOCYTES ABSOLUTE AUTO 0.7 x10^3/uL (0.0-0.8); MONOCYTES PERCENT AUTO 10.1 % (2.0-11.0); NEUTROPHILS ABSOLUTE AUTO 5.4 x10^3/uL (1.8-7.7); NEUTROPHILS PERCENT AUTO 81.9 % (50.0-80.0); PLATELET COUNT,PLT 115 x10^3/uL (130-400); RED BLOOD CELL COUNT 3.88 x10^6/uL (4.5-6.0); WHITE BLOOD CELL COUNT,WBC 6.6 x10^3/uL (4.0-10.0)
[2023-05-14 06:58] LABS: LYMPHOCYTES PERCENT AUTO 4.2 % (25.0-50.0)
[2023-05-14 07:12] LABS: A/G RATIO 0.76; ALBUMIN 2.6 g/dL (3.4-5.0); BILIRUBIN TOTAL 1.1 mg/dL (0.2-1.0); CREATININE 0.8 mg/dL (0.70-1.30); EST CRCL DRUG DOSING (CG) 66.28 mL/min; POTASSIUM,K 3.8 mmol/L (3.5-5.1)
[2023-05-14 07:16] LABS: CALCIUM 8.8 mg/dL (8.5-10.1)
[2023-05-14 07:17] LABS: ANION GAP 12.8 mmol/L (5-15)
[2023-05-14] MEDS: Docusate Sodium 100 MG Cap PO SCH (08:55)
[2023-05-14] MEDS: Aspirin 81 MG Tab.Chew PO SCH (08:55)
[2023-05-14] MEDS: Cholecalciferol (Vitamin D3) 25 MCG Tab PO SCH (08:55)
[2023-05-14] MEDS: Ciprofloxacin 250 MG Tab PO SCH (08:55)
[2023-05-14] MEDS: Lisinopril 5 MG Tab PO SCH (08:55)
[2023-05-14] MEDS: Cyanocobalamin (Vitamin B12) 1,000 MCG Tab PO SCH (08:56)
[2023-05-14] MEDS: Potassium Chloride 20 MEQ Tab.ER PO SCH (08:56)
[2023-05-14] MEDS: FLUoxetine 10 MG Cap PO SCH (08:56)
[2023-05-14] MEDS: Pantoprazole 40 MG Tab.CR PO SCH (08:56)
[2023-05-14] MEDS: Metoprolol Succinate 50 MG Tab.ER PO SCH (08:56)
[2023-05-14 11:28] VITALS: PULSE 68
[2023-05-14 13:45] VITALS: BP 133/64
== END 2023-05-14 13:20 | disposition swing bed (61) | DRG 57 ==
LOC: VM.ED 09:06 → VM.MS 11:07
PROVIDERS: ADMIT Internal Medicine; ATTEND Internal Medicine
DX: G20.A2 Parkinson's disease without dyskinesia, with fluctuations (principal); N39.0 Urinary tract infection, site not specified; R40.4 Transient alteration of awareness; R60.9 Edema, unspecified; E78.00 Pure hypercholesterolemia, unspecified; I10 Essential (primary) hypertension; K21.9 Gastro-esophageal reflux disease without esophagitis; M19.90 Unspecified osteoarthritis, unspecified site; E66.9 Obesity, unspecified; Z66 Do not resuscitate; N40.0 Benign prostatic hyperplasia without lower urinary tract symptoms; G62.9 Polyneuropathy, unspecified; R31.9 Hematuria, unspecified; Z88.1 Allergy status to other antibiotic agents; F41.9 Anxiety disorder, unspecified; T79.6XXA Traumatic ischemia of muscle, initial encounter; D51.9 Vitamin B12 deficiency anemia, unspecified; R26.81 Unsteadiness on feet; R74.8 Abnormal levels of other serum enzymes; M25.561 Pain in right knee; R73.01 Impaired fasting glucose; F09 Unspecified mental disorder due to known physiological condition; Z91.048 Other nonmedicinal substance allergy status; Z88.0 Allergy status to penicillin; Z88.8 Allergy status to other drugs, medicaments and biological substances; Z79.82 Long term (current) use of aspirin; Z79.899 Other long term (current) drug therapy; Z98.890 Other specified postprocedural states; Z68.34 Body mass index [BMI] 34.0-34.9, adult; Z86.16 Personal history of COVID-19; Z98.49 Cataract extraction status, unspecified eye; Z11.52 Encounter for screening for COVID-19; Z85.46 Personal history of malignant neoplasm of prostate; Z91.81 History of falling; Z86.010 Personal history of colon polyps
CPT/HCPCS: 0240U; 36415; 51798; 70450; 71045; 71101-LT; 73562-RT; 80053; 81001; 81003; 82550; 82947; 83880; 84484; 85025; 86140; 87086; 93005; 93010; 96374; 97110-GP; 97116-GP; 97161-GP; 97165-GO; 99284; 99285-25; A9270-GY; J1650; J1940; J7030

== ENCOUNTER 2023-05-14 09:01 | Inpatient (IN) | payer MEDICARE ==
[2023-05-14] MEDS ORDERED: Bisacodyl 10 MG Supp RECTAL PRN (13:12)
[2023-05-14] MEDS: Carbidopa/Levodopa 25-100 MG Tab PO SCH (16:21)
[2023-05-14] MEDS ORDERED: Enoxaparin 40 MG/0.4 ML Syringe SUBCUT SCH (20:00)
[2023-05-14] MEDS: Baclofen 10 MG Tab PO SCH (20:34)
[2023-05-14] MEDS: Potassium Chloride 20 MEQ Tab.ER PO SCH (20:34)
[2023-05-14] MEDS: Ciprofloxacin 250 MG Tab PO SCH (20:34)
[2023-05-14] MEDS: Carbidopa/Levodopa 50-200 MG Tab.ER PO SCH (20:34)
[2023-05-14] MEDS: Donepezil 10 MG Tab PO SCH (20:34)
[2023-05-14] MEDS: Acetaminophen 325 MG Tab PO PRN (23:46)
[2023-05-14] MEDS: LORazepam 0.5 MG Tab PO PRN (23:46)
[2023-05-15] MEDS: Aspirin 81 MG Tab.Chew PO SCH (08:40)
[2023-05-15] MEDS: FLUoxetine 10 MG Cap PO SCH (08:40)
[2023-05-15] MEDS: Cholecalciferol (Vitamin D3) 25 MCG Tab PO SCH (08:41)
[2023-05-15] MEDS: Docusate Sodium 100 MG Cap PO SCH (08:41)
[2023-05-15] MEDS: Cyanocobalamin (Vitamin B12) 1,000 MCG Tab PO SCH (08:41)
[2023-05-15] MEDS: Metoprolol Succinate 50 MG Tab.ER PO SCH (08:41)
[2023-05-15] MEDS: Lisinopril 5 MG Tab PO SCH (08:41)
[2023-05-15] MEDS: Pantoprazole 40 MG Tab.CR PO SCH (08:42)
[2023-05-15] MEDS ORDERED: QUEtiapine 25 MG Tab PO PRN (14:54)
[2023-05-15] MEDS ORDERED: QUEtiapine 25 MG Tab PO SCH (21:00)
[2023-05-16 07:01] LABS: BASOPHILS PERCENT AUTO 0.4 % (0.2-1.2); EOSINOPHILS ABSOLUTE AUTO 0.3 x10^3/uL (0.0-0.5); EOSINOPHILS PERCENT AUTO 7.1 % (0.0-4.0); HEMATOCRIT 32.7 % (40.0-52.0); HEMOGLOBIN 10.7 g/dL (14.0-18.0); IMMATURE GRAN ABSOLUTE AUTO 0.02 x10^3/uL (0.00-0.07); LYMPHOCYTES ABSOLUTE AUTO 0.3 x10^3/uL (1.0-4.8); LYMPHOCYTES PERCENT AUTO 5.4 % (25.0-50.0); MEAN CORPUSCULAR HEMOGLOBIN 29.4 pg (26.0-32.0); MEAN CORPUSCULAR HGB CONC 32.7 g/dL (32.0-36.0); MEAN CORPUSCULAR VOLUME 89.8 fL (78.0-93.0); MONOCYTES ABSOLUTE AUTO 0.5 x10^3/uL (0.0-0.8); MONOCYTES PERCENT AUTO 10.4 % (2.0-11.0); NEUTROPHILS ABSOLUTE AUTO 3.7 x10^3/uL (1.8-7.7); NEUTROPHILS PERCENT AUTO 76.3 % (50.0-80.0); RED BLOOD CELL COUNT 3.64 x10^6/uL (4.5-6.0); WHITE BLOOD CELL COUNT,WBC 4.8 x10^3/uL (4.0-10.0)
[2023-05-16 07:10] LABS: ANION GAP 12.1 mmol/L (5-15); CALCIUM 9.1 mg/dL (8.5-10.1); CREATININE 0.8 mg/dL (0.70-1.30); EST CRCL DRUG DOSING (CG) 66.28 mL/min; POTASSIUM,K 4.1 mmol/L (3.5-5.1)
[2023-05-16 07:44] LABS: PLATELET COUNT,PLT 146 x10^3/uL (130-400)
[2023-05-16] MEDS: Hydrochlorothiazide 12.5 MG Cap PO SCH (09:03)
[2023-05-21 07:12] LABS: BASOPHILS PERCENT AUTO 0.2 % (0.2-1.2); EOSINOPHILS ABSOLUTE AUTO 0.3 x10^3/uL (0.0-0.5); EOSINOPHILS PERCENT AUTO 6.3 % (0.0-4.0); HEMATOCRIT 35.6 % (40.0-52.0); HEMOGLOBIN 11.7 g/dL (14.0-18.0); IMMATURE GRAN ABSOLUTE AUTO 0.04 x10^3/uL (0.00-0.07); LYMPHOCYTES ABSOLUTE AUTO 0.4 x10^3/uL (1.0-4.8); MEAN CORPUSCULAR HEMOGLOBIN 29.4 pg (26.0-32.0); MEAN CORPUSCULAR HGB CONC 32.9 g/dL (32.0-36.0); MEAN CORPUSCULAR VOLUME 89.4 fL (78.0-93.0); MONOCYTES ABSOLUTE AUTO 0.5 x10^3/uL (0.0-0.8); MONOCYTES PERCENT AUTO 9.2 % (2.0-11.0); NEUTROPHILS ABSOLUTE AUTO 3.9 x10^3/uL (1.8-7.7); NEUTROPHILS PERCENT AUTO 75.7 % (50.0-80.0); PLATELET COUNT,PLT 219 x10^3/uL (130-400); RED BLOOD CELL COUNT 3.98 x10^6/uL (4.5-6.0); WHITE BLOOD CELL COUNT,WBC 5.1 x10^3/uL (4.0-10.0)
[2023-05-21 07:27] LABS: CALCIUM 9.6 mg/dL (8.5-10.1); EST CRCL DRUG DOSING (CG) 53.03 mL/min; POTASSIUM,K 4.4 mmol/L (3.5-5.1)
[2023-05-21 07:29] LABS: ANION GAP 12.4 mmol/L (5-15)
[2023-05-21 07:32] LABS: LYMPHOCYTES PERCENT AUTO 7.8 % (25.0-50.0)
[2023-05-25 07:03] LABS: CALCIUM 9.5 mg/dL (8.5-10.1); EST CRCL DRUG DOSING (CG) 53.03 mL/min
[2023-05-26] MEDS: Menthol 10%/Methyl Salicylate 15% 85 GM Tube TOP PRN (11:05)
[2023-05-27] MEDS: Carbidopa/Levodopa 50-200 MG Tab.ER PO PRN (02:58)
[2023-05-27] MEDS: Ibuprofen 200 MG Tab PO PRN (20:32)
[2023-05-29] MEDS ORDERED: Mineral Oil/Petrolatum/Phenylephrine/Shark Liver Oil Oint 57 GM Tube RECTAL PRN (15:16)
[2023-05-29] MEDS: Mineral Oil/Petrolatum/Phenylephrine/Shark Liver Oil Oint 57 GM Tube RECTAL ONE (15:45)
[2023-05-31] MEDS: Polyethylene Glycol 3350 Powder 17 GM Packet PO SCH (10:29)
== END 2023-06-01 09:45 | disposition home health service (06) | DRG 57 ==
LOC: VM.MS 14:04
PROVIDERS: ADMIT Internal Medicine; ATTEND Internal Medicine
DX: G20.A2 Parkinson's disease without dyskinesia, with fluctuations (principal); N39.0 Urinary tract infection, site not specified; E66.09 Other obesity due to excess calories; I10 Essential (primary) hypertension; F41.9 Anxiety disorder, unspecified; D64.9 Anemia, unspecified; G62.9 Polyneuropathy, unspecified; N40.0 Benign prostatic hyperplasia without lower urinary tract symptoms; Z66 Do not resuscitate; G31.84 Mild cognitive impairment of uncertain or unknown etiology; E78.5 Hyperlipidemia, unspecified; R31.29 Other microscopic hematuria; Z88.0 Allergy status to penicillin; Z79.82 Long term (current) use of aspirin; Z68.30 Body mass index [BMI] 30.0-30.9, adult; Z79.899 Other long term (current) drug therapy; Z85.46 Personal history of malignant neoplasm of prostate; Z88.8 Allergy status to other drugs, medicaments and biological substances; Z86.16 Personal history of COVID-19
CPT/HCPCS: 36415; 51798; 80048; 82947; 85025; 92507-GN; 92522-GN; 97110-GP; 97112-GP; 97116-GP; 97530-GO; 97530-GP; 97535-GO; A9270-GY

== ENCOUNTER 2025-03-13 14:55 | Emergency (ER) | payer MEDICARE ==
[2025-03-13 15:50] LABS: BASOPHILS ABSOLUTE AUTO 0.0 x10^3/uL (0.0-0.2); BASOPHILS PERCENT AUTO 0.4 % (0.2-1.2); EOSINOPHILS ABSOLUTE AUTO 0.2 x10^3/uL (0.0-0.5); EOSINOPHILS PERCENT AUTO 3.9 % (0.0-4.0); IMMATURE GRAN ABSOLUTE AUTO 0.02 x10^3/uL (0.00-0.07); IMMATURE GRAN PERCENT AUTO 0.40 % (0.00-0.43); LYMPHOCYTES ABSOLUTE AUTO 0.5 x10^3/uL (1.0-4.8); MONOCYTES ABSOLUTE AUTO 0.4 x10^3/uL (0.0-0.8); MONOCYTES PERCENT AUTO 7.6 % (2.0-11.0); NEUTROPHILS ABSOLUTE AUTO 4.3 x10^3/uL (1.8-7.7); NEUTROPHILS PERCENT AUTO 79.0 % (50.0-80.0); PLATELET COUNT,PLT 139 x10^3/uL (130-400); RED BLOOD CELL COUNT 3.94 x10^6/uL (4.5-6.0); WHITE BLOOD CELL COUNT,WBC 5.4 x10^3/uL (4.0-10.0)
[2025-03-13 16:00] LABS: APPEARANCE,URINE CLEAR (CLEAR); GLUCOSE,URINE NEGATIVE (NEGATIVE); OCCULT BLOOD,URINE NEGATIVE (NEGATIVE)
[2025-03-13 16:11] LABS: LYMPHOCYTES PERCENT AUTO 8.7 % (25.0-50.0)
[2025-03-13 16:16] LABS: A/G RATIO 1.20; ALANINE AMINOTRANSFERASE,ALT 9 U/L (16-63); ASPARTATE AMNIOTRANSFERASE,AST 13 U/L (15-37); BILIRUBIN TOTAL 0.6 mg/dL (0.2-1.0); BLOOD UREA NITROGEN,BUN 15 mg/dL (7-18); CARBON DIOXIDE,CO2 31 mmol/L (21-32); CHLORIDE,CL 104 mmol/L (98-107); CREATININE 0.8 mg/dL (0.70-1.30); ESTIMATED GFR 86 mL/min (>=60); GLUCOSE RANDOM 133 mg/dL (70-99); POTASSIUM,K 4.6 mmol/L (3.5-5.1); PROTEIN TOTAL,TP 6.6 g/dL (6.4-8.2); SODIUM,NA 142 mmol/L (136-145)
== END 2025-03-13 17:04 ==
LOC: VM.ED 15:03
DX: R55 Syncope and collapse (principal); S00.03XA Contusion of scalp, initial encounter; I10 Essential (primary) hypertension; E78.00 Pure hypercholesterolemia, unspecified; E66.9 Obesity, unspecified; M19.90 Unspecified osteoarthritis, unspecified site; Z86.16 Personal history of COVID-19; Z88.0 Allergy status to penicillin; Z88.1 Allergy status to other antibiotic agents; Z88.8 Allergy status to other drugs, medicaments and biological substances; Z79.82 Long term (current) use of aspirin; Z79.899 Other long term (current) drug therapy; W01.198A Fall on same level from slipping, tripping and stumbling with subsequent striking against other object, initial encounter
CPT/HCPCS: 36415; 70450; 80053; 81003; 83735; 84484; 85025; 86140; 93005; 93010; 99284